=== PATIENT | male | born 1945 | race Caucasian/White ===

== ENCOUNTER → 2017-08-12 | Outpatient (CLI) | payer OTHER ==
[~2017-08-12] MED LIST: ASPI-515 PO; CARV-39 PO; HYDR12.58 PO; LISI-170 PO; ROSU10TA PO
== END | disposition home or self-care (01) ==
LOC: CVU 06:49
PROVIDERS: ATTEND Internal Medicine Cardiovascular Disease
DX: I10 Essential (primary) hypertension (principal); I25.10 Atherosclerotic heart disease of native coronary artery without angina pectoris; I42.9 Cardiomyopathy, unspecified; F17.211 Nicotine dependence, cigarettes, in remission; I72.3 Aneurysm of iliac artery; I08.0 Rheumatic disorders of both mitral and aortic valves
CPT/HCPCS: 93306; 93880; 93978

== ENCOUNTER 2019-02-01 11:48 | Outpatient (CLI) | payer OTHER ==
[~2019-02-01 11:48] MED LIST changes: -HYDR12.58 PO; +HYDROCHLOROTH12.5 MG PO; -ROSU10TA PO; +ROSU10TA2 PO
== END 2019-02-01 23:59 | disposition home or self-care (01) ==
LOC: CFH 11:48
PROVIDERS: ATTEND Internal Medicine
DX: I25.10 Atherosclerotic heart disease of native coronary artery without angina pectoris (principal); R91.8 Other nonspecific abnormal finding of lung field; D35.02 Benign neoplasm of left adrenal gland; J84.10 Pulmonary fibrosis, unspecified; F17.200 Nicotine dependence, unspecified, uncomplicated
CPT/HCPCS: 71250

== ENCOUNTER → 2020-03-20 | Outpatient (CLI) | payer OTHER | END | disposition home or self-care (01) | LOC: CFH 07:08 | PROVIDERS: ATTEND Internal Medicine Cardiovascular Disease | DX: I08.8 Other rheumatic multiple valve diseases (principal); I42.9 Cardiomyopathy, unspecified | CPT/HCPCS: 93306; 93356 ==